=== PATIENT | male | born 1960 | race Caucasian/White ===

== ENCOUNTER → 2017-06-10 | Emergency (ER) | payer OTHER ==
[~2017-06-10] VITALS: Ht 175.3 cm; Wt 88.5 kg
[~2017-06-10] MED LIST: ACETAMINOPHEN 325 MG TAB PO ONE; AZITHROMYCIN 500MG/NS 250 ML 250 ML IV STA; Hydralazine Hcl PO; PROTONIX40 MG/ML PO; REGLAN10 MG PO; SODIUM CHLORIDE 0.9% 1000ML 1,000 ML ONE; SUCRALFATE1 G/10 ML PO
--- NOTE | 2017-06-10 08:18 | Diagnostic Imaging Report ---
EXAMINATION: CHEST 2 VIEWS 06/10/2017 7:24 AM COMPARISON: Chest x-ray 02/07/2016 INDICATION: Fever, cough DISCUSSION: LINES: None. LUNGS: Multifocal airspace opacities have developed throughout the right lung predominantly in the lower lobe. Patchy airspace opacities have developed in the left midlung field. PLEURA: No large pleural effusion or pneumothorax. HEART AND MEDIASTINUM: The cardiomediastinal silhouette is unremarkable. BONES AND SOFT TISSUES: No focal osseous lesions. The soft tissues are normal. IMPRESSION: Pulmonary infiltrates suggestive of pneumonia. Recommend follow-up chest x-ray 8-10 weeks after completion of therapy to assess interval change/resolution. Signed by: Dr. Vazquez Sawyer MD on 06/10/2017 8:14 AM
[2017-06-10 08:58] LABS: BASOPHILS % 0.4 % (0.0-1.0); EOSINOPHILS % 0.2 % (0.0-6.0); HEMATOCRIT 36.6 % (38.2-49.6); LYMPHOCYTES # (AUTO) 0.4 (1.0-3.2); LYMPHOCYTES % 4.2 % (18.0-39.1); MEAN CORPUSCULAR HEMOGLOBIN 26.4 pg (28-32); MEAN CORPUSCULAR HGB CONC 32.8 g/dL (31-35); MEAN CORPUSCULAR VOLUME 80.6 fL (81-99); MONOCYTES # (AUTO) 0.5 (0.2-0.8); MONOCYTES % 4.4 % (4.4-11.3); NEUTROPHILS # (AUTO) 9.6 (2.1-6.9); NEUTROPHILS % 90.6 % (38.7-80.0); PLATELET COUNT 201 x10e3/uL (140-360); RED BLOOD COUNT 4.54 x10e6/uL (4.3-5.7); RED CELL DISTRIBUTION WIDTH 13.3 % (11.7-14.4)
[2017-06-10 09:07] LABS: BILIRUBIN,URINE NEGATIVE (NEGATIVE); CLARITY,URINE CLEAR (CLEAR); COLOR,URINE YELLOW (YELLOW); KETONES,URINE NEGATIVE (NEGATIVE); LEUKOCYTE ESTERASE ,URINE NEGATIVE (NEGATIVE); NITRITE,URINE NEGATIVE (NEGATIVE); PROTEIN,URINE DIPSTICK NEGATIVE (NEGATIVE); URINE UROBILINOGEN 0.2 mg/dL (0.2 - 1)
[2017-06-10 09:19] LABS: ANION GAP 14.3 mmol/L (8-16); BLOOD UREA NITROGEN 18 mg/dL (7-26); BUN/CREATININE RATIO 15 (6-25); CALCIUM 8.6 mg/dL (8.4-10.2); CARBON DIOXIDE 24 mmol/L (22-29); CHLORIDE 106 mmol/L (98-107); EST GLOMERULAR FILTRATION RATE > 60 ML/MIN (60-); GLUCOSE 104 mg/dL (74-118); POTASSIUM 3.3 mmol/L (3.5-5.1); SODIUM 141 mmol/L (136-145)
[2017-06-10 11:29] LABS: BAND NEUTROPHILS % (MANUAL) 43 %; LYMPHOCYTES % (MANUAL) 8 % (19-48); MONOCYTES % (MANUAL) 3 % (3.4-9.0); NEUTROPHILS % (MANUAL) 46 % (40-74)
[2017-06-10 11:30] LABS: PLATELET ESTIMATE ADEQUATE; PLATELET MORPHOLOGY COMMENT NORMAL; RBC MORPHOLOGY COMMENT NORMAL
== END | disposition home or self-care (01) ==
LOC: ER 07:13
DX: J15.9 Unspecified bacterial pneumonia (principal); I10 Essential (primary) hypertension; K21.9 Gastro-esophageal reflux disease without esophagitis
CPT/HCPCS: 36415; 71020; 80048; 81001; 85025; 87040; 87086; 87400; 93005; 99284; J0456

== ENCOUNTER 2022-10-30 17:29 | Inpatient (IN) | payer OTHER ==
[~2022-10-30] VITALS: Ht 175.3 cm; Wt 77.8 kg
[2022-10-30] VITALS (7 sets, daily range): BP systolic 114–145; BP diastolic 59–87; PULSE 32; RESP 12–20; TEMP 97.9–98; O2SAT 95–98
[~2022-10-30 17:29] MED LIST changes: -ACETAMINOPHEN 325 MG TAB PO ONE; -AZITHROMYCIN 500MG/NS 250 ML 250 ML IV STA; -SODIUM CHLORIDE 0.9% 1000ML 1,000 ML ONE
[2022-10-30] MEDS ORDERED: SODIUM CHLORIDE 0.9% 1000ML 1,000 ML IV STA (17:38)
[2022-10-30] MEDS ORDERED: ASPIRIN 81 MG CHEW TAB PO STA (17:38)
[2022-10-30 18:03] LABS: BASOPHILS # (AUTO) 0.1 (0.0-0.1); BASOPHILS % 0.7 % (0.0-1.0); EOSINOPHILS # (AUTO) 0.2 (0.0-0.4); EOSINOPHILS % 1.7 % (0.0-6.0); HEMATOCRIT 39.4 % (38.2-49.6); HEMOGLOBIN 12.6 g/dL (14.0-18.0); LYMPHOCYTES # (AUTO) 2.5 (1.0-3.2); LYMPHOCYTES % 20.6 % (18.0-39.1); MEAN CORPUSCULAR HEMOGLOBIN 26.2 pg (28-32); MEAN CORPUSCULAR VOLUME 81.9 fL (81-99); MONOCYTES # (AUTO) 0.8 (0.2-0.8); MONOCYTES % 6.6 % (4.4-11.3); NEUTROPHILS # (AUTO) 8.4 (2.1-6.9); PLATELET COUNT 310 x10e3/uL (140-360); RED BLOOD COUNT 4.81 x10e6/uL (4.3-5.7); RED CELL DISTRIBUTION WIDTH 14.8 % (11.7-14.4)
[2022-10-30] MEDS ORDERED: KETOROLAC TROMETHAMINE 30 MG/ML VIAL ONE (18:06)
[2022-10-30 18:14] LABS: INR 0.99; PROTHROMBIN TIME 13.6 seconds (11.9-14.5)
[2022-10-30 18:25] LABS: ALBUMIN 4.6 g/dL (3.5-5.0); ALBUMIN/GLOBULIN RATIO 1.6 (0.8-2.0); ANION GAP 15.3 mmol/L (8-16); CALCIUM 9.4 mg/dL (8.4-10.2); CREATININE, SERUM 1.21 mg/dL (0.72-1.25); MAGNESIUM 1.6 MG/DL (1.3-2.1); POTASSIUM 4.3 mmol/L (3.5-5.1)
[2022-10-30 18:32] LABS: CREATINE KINASE MB 0.5 ng/mL (0-5.0)
[2022-10-30] MEDS ORDERED: SODIUM CHLORIDE 0.9% 1000ML 1,000 ML IV SCH (18:45)
[2022-10-30] MEDS: ASPIRIN 81 MG ENTERIC COATED PO SCH (18:59)
[2022-10-30] MEDS ORDERED: ACETAMINOPHEN 325 MG TAB PO PRN (19:15)
[2022-10-30] MEDS ORDERED: ZOLPIDEM TARTRATE 5 MG TAB PO PRN (19:15)
[2022-10-30] MEDS ORDERED: ONDANSETRON HCL INJ 2MG/ML 2ML 2 MG/ML VIAL IV PRN (19:15)
[2022-10-30 20:09] LABS: EOSINOPHILS % (MANUAL) 1 % (0-7); LYMPHOCYTES % (MANUAL) 16 % (19-48); MONOCYTES % (MANUAL) 7 % (3.4-9.0); NEUTROPHILS % (MANUAL) 75 % (40-74); PLATELET ESTIMATE ADEQUATE; PLATELET MORPHOLOGY COMMENT NORMAL; RBC MORPHOLOGY COMMENT NORMAL
[2022-10-30] MEDS ORDERED: HYDRALAZINE HC100 MG PO (21:42)
[2022-10-30] MEDS ORDERED: ASPIRIN EC81 MG PO (21:50)
[2022-10-30] MEDS ORDERED: LISINOPRIL10 MG PO (21:53)
[2022-10-30] MEDS ORDERED: NIFEDIPINE ER30 M1 PO (21:55)
[2022-10-30] MEDS ORDERED: CARVEDILOL12.5 MG PO (21:56)
[2022-10-30] MEDS ORDERED: PANTOPRAZOLE SO40 MG PO (22:00)
[2022-10-30] MEDS ORDERED: ATORVASTATIN CA10 MG PO (22:02)
[2022-10-30] MEDS ORDERED: SPIRONOLACTONE25 MG PO (22:04)
[2022-10-31] VITALS (25 sets, daily range): BP systolic 114–159; BP diastolic 56–138; PULSE 31–73; RESP 11–21; TEMP 97.8–98.8; O2SAT 95–98
[2022-10-31 00:35] LABS: CREATINE KINASE MB 0.5 ng/mL (0-5.0)
[2022-10-31 05:19] LABS: BASOPHILS # (AUTO) 0.1 (0.0-0.1); BASOPHILS % 0.9 % (0.0-1.0); EOSINOPHILS # (AUTO) 0.2 (0.0-0.4); EOSINOPHILS % 1.8 % (0.0-6.0); HEMATOCRIT 37.7 % (38.2-49.6); LYMPHOCYTES % 22.6 % (18.0-39.1); MEAN CORPUSCULAR HEMOGLOBIN 26.3 pg (28-32); MEAN CORPUSCULAR HGB CONC 31.8 g/dL (31-35); MEAN CORPUSCULAR VOLUME 82.5 fL (81-99); MONOCYTES # (AUTO) 0.7 (0.2-0.8); MONOCYTES % 7.4 % (4.4-11.3); NEUTROPHILS # (AUTO) 5.9 (2.1-6.9); NEUTROPHILS % 67.1 % (38.7-80.0); PLATELET COUNT 254 x10e3/uL (140-360); RED BLOOD COUNT 4.57 x10e6/uL (4.3-5.7); RED CELL DISTRIBUTION WIDTH 14.5 % (11.7-14.4)
[2022-10-31 05:54] LABS: ALBUMIN 3.9 g/dL (3.5-5.0); ALBUMIN/GLOBULIN RATIO 1.4 (0.8-2.0); ANION GAP 15.8 mmol/L (8-16); CHOL/HDL RATIO 2.8 (3.9-4.7); CREATININE, SERUM 0.84 mg/dL (0.72-1.25); POTASSIUM 3.8 mmol/L (3.5-5.1)
[2022-10-31 06:55] LABS: CREATINE KINASE MB 1.3 ng/mL (0-5.0)
[2022-10-31] MEDS: ASPIRIN 81 MG ENTERIC COATED PO SCH (09:21)
[2022-10-31] MEDS: MUPIROCIN 2% OINT 22 GM TUBE TOP SCH ×2 (09:22→16:16)
[2022-10-31 13:47] LABS: CREATINE KINASE MB 1.6 ng/mL (0-5.0)
[2022-10-31] MEDS ORDERED: CLINDAMYCIN 600MG / 50ML 50 ML IV PRN (14:00)
[2022-10-31] MEDS ORDERED: SODIUM CHLORIDE 0.9% 1000ML 2,000 ML ONE (16:45)
[2022-10-31] MEDS ORDERED: Vancomycin IV 1 GM VIAL ONE ×2 (16:45→16:51)
[2022-10-31] MEDS ORDERED: LIDOCAINE HCL 2% LOCAL 20 ML VIAL ONE (16:45)
[2022-10-31] MEDS ORDERED: GENTAMICIN SULFATE 40 MG/ML 2 ML VIAL ONE (16:50)
[2022-10-31] MEDS ORDERED: LIDOCAINE 1% W/EPINEPHRINE 20 ML VIAL ONE (16:51)
[2022-10-31] MEDS ORDERED: SODIUM CHLORIDE 0.9% 250ML 250 ML ONE (16:51)
[2022-10-31] MEDS ORDERED: SODIUM CHLORIDE 0.9% 500ML 500 ML ONE (17:11)
[2022-10-31] MEDS ORDERED: FENTANYL CITRATE/PF 100MCG/2 ML INJ ONE (17:20)
[2022-10-31] MEDS ORDERED: MIDAZOLAM HCL 2 MG/2 ML VIAL ONE ×2 (17:20→17:43)
[2022-10-31] MEDS ORDERED: Morphine 2mg Syringe 2 MG/ML SYR IV PRN (19:45)
[2022-10-31] MEDS ORDERED: DOCUSATE SODIUM 100 MG CAP PO ONE (22:00)
[2022-10-31] MEDS: HYDROCODONE/APAP 7.5MG-325MG 1 EA TAB PO PRN (22:16)
[2022-11-01] VITALS (19 sets, daily range): BP systolic 106–158; BP diastolic 73–97; PULSE 55–73; RESP 12–22; TEMP 98.2–98.4; O2SAT 94–99
[2022-11-01 04:36] LABS: BASOPHILS # (AUTO) 0.1 (0.0-0.1); EOSINOPHILS # (AUTO) 0.1 (0.0-0.4); EOSINOPHILS % 1.6 % (0.0-6.0); HEMATOCRIT 40.6 % (38.2-49.6); HEMOGLOBIN 13.3 g/dL (14.0-18.0); LYMPHOCYTES # (AUTO) 1.7 (1.0-3.2); LYMPHOCYTES % 23.4 % (18.0-39.1); MEAN CORPUSCULAR HEMOGLOBIN 26.3 pg (28-32); MEAN CORPUSCULAR HGB CONC 32.8 g/dL (31-35); MEAN CORPUSCULAR VOLUME 80.4 fL (81-99); MONOCYTES # (AUTO) 0.6 (0.2-0.8); MONOCYTES % 8.3 % (4.4-11.3); NEUTROPHILS # (AUTO) 4.8 (2.1-6.9); NEUTROPHILS % 65.6 % (38.7-80.0); PLATELET COUNT 209 x10e3/uL (140-360); RED BLOOD COUNT 5.05 x10e6/uL (4.3-5.7); RED CELL DISTRIBUTION WIDTH 14.1 % (11.7-14.4)
[2022-11-01] MEDS: HYDROCODONE/APAP 7.5MG-325MG 1 EA TAB PO PRN (04:50)
[2022-11-01 04:57] LABS: ALBUMIN 3.9 g/dL (3.5-5.0); ALBUMIN/GLOBULIN RATIO 1.4 (0.8-2.0); ANION GAP 14.7 mmol/L (8-16); CALCIUM 8.8 mg/dL (8.4-10.2); POTASSIUM 3.7 mmol/L (3.5-5.1)
[2022-11-01 05:14] LABS: CREATININE, SERUM 1.29 mg/dL (0.72-1.25)
[2022-11-01] MEDS ORDERED: DOCUSATE SODIUM 100 MG CAP PO SCH (09:00)
[2022-11-01] MEDS: ASPIRIN 81 MG ENTERIC COATED PO SCH (10:18)
[2022-11-01] MEDS: MUPIROCIN 2% OINT 22 GM TUBE TOP SCH (10:19)
[2022-11-01] MEDS ORDERED: SUCRALFATE 1 GM/10 ML SUSP PO SCH (11:30)
[2022-11-01] MEDS ORDERED: MINOCYCLINE HCL 50 MG CAP PO SCH (12:30)
[2022-11-01] MEDS ORDERED: HYDRALAZINE HCL 100 MG TABLET PO SCH (15:00)
[2022-11-02] MEDS ORDERED: ATORVASTATIN 40 MG TAB PO SCH (09:00)
== END 2022-11-01 12:54 | disposition home or self-care (01) | DRG 244 ==
LOC: ER 17:39 → ERHOLD 18:07 → ICU 19:39
PROVIDERS: ADMIT Internal Medicine; ATTEND Internal Medicine
PROC: 0JH606Z Insertion of Pacemaker, Dual Chamber into Chest Subcutaneous Tissue and Fascia, Open Approach (ICD-10-PCS; principal; 2022-10-31)
PROC: 02H63JZ Insertion of Pacemaker Lead into Right Atrium, Percutaneous Approach (ICD-10-PCS; 2022-10-31)
PROC: 02HK3JZ Insertion of Pacemaker Lead into Right Ventricle, Percutaneous Approach (ICD-10-PCS; 2022-10-31)
DX: I44.2 Atrioventricular block, complete (principal); I12.9 Hypertensive chronic kidney disease with stage 1 through stage 4 chronic kidney disease, or unspecified chronic kidney disease; N18.30 Chronic kidney disease, stage 3 unspecified
CPT/HCPCS: 0223U; 33208; 36415; 71045; 80053; 80061; 82550; 82553; 82948; 83735; 83880; 84443; 84484; 85025; 85610; 85730; 93005; 93306; 96360; 99152; 99153; 99284; C1769; J0690; J1580; J1885; J2001; J2250; J2270; J2405; J7030; J7040; J7050